=== PATIENT | male | born 2000 | race Caucasian/White ===

== ENCOUNTER 2020-05-21 12:45 | Outpatient (CLI) | payer OTHER ==
--- NOTE | 2020-05-21 14:35 | XRAY Report ---
PROCEDURE: Knee 3 View RT INDICATIONS: RIGHT KNEE PAIN TECHNIQUE: 3 views of the right knee.. COMPARISON: None. FINDINGS: Bones: No fractures or dislocations. No suspicious bony lesions. Mild tricompartmental periarticul ar osteophyte formation. Soft tissues: No joint effusion. No suspicious soft tissue calcifications. IMPRESSION: Osteoarthritis. No acute fracture. No osseous lesion. If symptoms and/or clinical suspic ion for pathology continue, further assessment with repeat plain films, or advanced imaging (e.g., CT , MRI, or bone scan) is recommended for further assessment. Reviewed by: Akanksha Monique MD on 05/21/2020 2:34 PM PDT Approved by: Akanksha Monique MD on 05/21/2020 2:34 PM PDT Station ID: [id number]
== END 2020-05-21 23:59 | disposition home or self-care (01) ==
LOC: DI.S 12:45
PROVIDERS: ATTEND Physician Assistant Medical
DX: M17.11 Unilateral primary osteoarthritis, right knee (principal)